=== PATIENT | female | born 1990 | race Two or more races ===

== ENCOUNTER 2020-10-31 19:49 | Emergency (ER) | payer OTHER ==
[~2020-10-31] VITALS: Ht 152.4 cm; Wt 54.9 kg
[2020-10-31 23:41] LABS: RED BLOOD COUNT 3.5 M/UL (4.00-5.10); WHITE BLOOD COUNT 8.2 K/UL (4.5-11.0)
== END 2020-11-01 10:47 | disposition left against medical advice (07) ==
LOC: ER1 19:49 → ZEROF 11-01 03:01
PROVIDERS: Family Medicine
DX: N39.0 Urinary tract infection, site not specified (principal); N83.8 Other noninflammatory disorders of ovary, fallopian tube and broad ligament; N18.9 Chronic kidney disease, unspecified; F17.210 Nicotine dependence, cigarettes, uncomplicated; Z90.49 Acquired absence of other specified parts of digestive tract; Z20.822 Contact with and (suspected) exposure to COVID-19; Z88.1 Allergy status to other antibiotic agents; Z88.5 Allergy status to narcotic agent; Z88.0 Allergy status to penicillin; Z88.6 Allergy status to analgesic agent; Z88.8 Allergy status to other drugs, medicaments and biological substances; Z91.040 Latex allergy status; Z79.01 Long term (current) use of anticoagulants; Z90.710 Acquired absence of both cervix and uterus
CPT/HCPCS: 80053; 81001; 83690; 84703; 85025; 87077; 87086; 87186; 90471; 90715; 96365; 96372; 96375; 96376; 99284; J1170; J1644; J2270; J2405; J2550; J7030; Q9967; U0002

== ENCOUNTER 2021-06-06 15:33 | Emergency (ER) | payer OTHER | END 2021-06-06 16:35 | disposition home or self-care (01) | LOC: ER1 15:33 | DX: Z53.21 Procedure and treatment not carried out due to patient leaving prior to being seen by health care provider (principal) ==